=== PATIENT | male | born 1980 | race African-American/Black ===

== ENCOUNTER 2025-01-02 05:17 | Emergency (ER) | payer SELFPAY ==
[~2025-01-02] VITALS: Ht 175.3 cm; Wt 118.0 kg
[2025-01-02 05:33] VITALS: TEMP 36.7
[2025-01-02 08:37] VITALS: TEMP 98
[2025-01-02 08:52] VITALS: PULSE 83; RESP 22; O2SAT 99
[2025-01-02] MEDS: ALBUTEROL (0.083%) 2.5MG/3ML NEB HHN ONE (08:52)
[2025-01-02 08:58] LABS: BASOPHILS % 0.6 % (0.0-2.0); EOSINOPHILS % 4.0 % (0.0-5.0); HEMATOCRIT. 41.4 % (42.0-52.0); HEMOGLOBIN. 13.8 g/dL (14.0-18.0); LYMPHOCYTES % 47.4 % (20.0-50.0); MEAN PLATELET VOLUME 8.4 fl (7.4-10.4); MONOCYTES % 11.0 % (2.0-8.0); NEUTROPHILS % 37.0 % (40.0-76.0); PLATELET 268 x1000/uL (130-400); RED BLOOD CELL COUNT 4.95 mill/uL (4.7-6.1); RED CELL DISTRIBUTION WIDTH 13.4 % (11.6-14.6)
[2025-01-02 09:13] LABS: CREATININE 1.2 mg/dL (0.6-1.3); UREA NITROGEN BLOOD 14 mg/dL (9-23)
[2025-01-02 09:15] LABS: TROPONIN I HIGH SENSITIVITY 4 ng/L (3.0-53)
[2025-01-02] MEDS ORDERED: IPRATROPIUM BROMIDE (0.02%) 0.5MG/2.5ML NEB HHN ONE (09:45)
[2025-01-02] MEDS ORDERED: ALBUTEROL (0.083%) 2.5MG/3ML NEB HHN ONE (09:45)
[2025-01-02] MEDS ORDERED: ALBU90AE INH (10:04)
[2025-01-02 10:22] VITALS: BP 128/73; PULSE 71; RESP 18; O2SAT 100
== END 2025-01-02 10:23 | disposition home or self-care (01) ==
LOC: ER 05:51 → CMPBEDREQ 10:56
DX: J45.901 Unspecified asthma with (acute) exacerbation (principal); B34.9 Viral infection, unspecified; R07.2 Precordial pain; I10 Essential (primary) hypertension
CPT/HCPCS: 80048; 85025; 84484; 36415; 71045; 94640; 93005; 99285; Z7610 ×3